=== PATIENT | male | born 1995 | race Caucasian/White ===

== ENCOUNTER 2018-08-24 21:24 | Emergency (ER) | payer BC ==
[2018-08-24 21:35] VITALS: BP 125/81
--- NOTE | 2018-08-24 23:59 | EDM.PDOC ---
ED HPI GENERAL MEDICAL PROBLEM - General Chief Complaint: Chest Pain Stated Complaint: CHEST PAIN AND SOB Time Seen by Provider: 08/24/18 23:01 Source of Information: Reports: Patient, Family (Mother), RN Notes Reviewed History Limitations: Reports: No Limitations - History of Present Illness INITIAL COMMENTS - FREE TEXT/NARRATIVE: The patient states that he developed left-sided chest discomfort around 20:30 this evening. He describes the sensation as tense/pressure. It came on suddenly. It is a discomfort, not a pain. He has not identified any modifiers. No associated dyspnea or palpitations. He has had nausea, but no emesis. No recent diaphoresis, although he states that his left armpit feels sweaty. He acknowledges that he feels anxious. The patient denies any recent chest trauma, however, he does report that he works out "everything" in the gym. The patient states that he drank a 16 ounce energy drink plus 12 ounces of coffee today. He acknowledges that he drank excessive alcohol on Friday night, 08/22/2018. The patient did not take any medications prior to coming to the ED. The patient has a history of anxiety, untreated. Here in the ED, it is noted that his oxygen saturation is 100% on room air, suggestive of hyperventilation. The patient's PCP is Dr. Hayder Villeda. Left Chest Pain Score (Numeric/FACES): 2 - Related Data Allergies Allergy/AdvReac Type Severity Reaction Status Date / Time cephalexin Allergy Rash Verified 08/24/18 21:35 Home Meds: Home Meds Orphenadrine [Norflex] 1 tab PO Q12H PRN #14 tab.er 08/25/18 [Rx] Past Medical History Gastrointestinal History: Reports: GERD Psychiatric History: Reports: Anxiety (untreated) Social & Family History - Tobacco Use Smoking Status *Q: Former Smoker Years of Tobacco use: 2 Packs/Tins Daily: 0.5 Month/Year Tobacco Last Used: Quit 2015 - Caffeine Use Caffeine Use: Reports: Coffee, Energy Drinks - Alcohol Use Alcohol Use History: Yes Alcohol Use Frequency: Socially (occasionally to excess) - Recreational Drug Use Recreational Drug Use: Yes Drug Use in Last 12 Months: Yes Recreational Drug Type: Reports: Marijuana/Hashish (last smoked June 2018), Psilocybin (Mushrooms) (Last ate around Mar 2018) - Living Situation & Occupation Living situation: Reports: Single, with Family Occupation: Unemployed ED ROS GENERAL - Review of Systems Review Of Systems: ROS reveals no pertinent complaints other than HPI. ED EXAM, GENERAL - Physical Exam Exam: See Below Exam Limited By: No Limitations General Appearance: Alert, WD/WN, No Apparent Distress Eye Exam: Bilateral Eye: EOMI, Normal Inspection Ears: Normal External Exam, Hearing Grossly Normal Nose: Normal Inspection Throat/Mouth: Normal Inspection, Normal Lips, Normal Voice, No Airway Compromise Head: Atraumatic, Normocephalic Neck: Normal Inspection, Full Range of Motion Respiratory/Chest: No Respiratory Distress, Lungs Clear, Normal Breath Sounds, No Accessory Muscle Use, Chest Non-Tender (No tenderness to direct palpation of the left pectoralis muscle, however, pain is reproduced with the patient pressing his hands together in front of his chest.) Cardiovascular: Normal Peripheral Pulses, Regular Rate, Rhythm, No Edema, No Gallop, No JVD, No Murmur, No Rub Peripheral Pulses: 4+: Radial (L), Radial (R) GI/Abdominal: Normal Bowel Sounds, Soft, Non-Tender, No Organomegaly, No Distention, No Abnormal Bruit, No Mass (Male) Exam: Deferred Rectal (Males) Exam: Deferred Back Exam: Normal Inspection, Full Range of Motion, NT Extremities: Normal Inspection, Normal Range of Motion, No Pedal Edema, Normal Capillary Refill Neurological: Alert, Oriented, Normal Cognition, No Motor/Sensory Deficits Psychiatric: Normal Affect Skin Exam: Warm, Dry, Intact, Normal Color, No Rash EKG INTERPRETATION EKG Date: 08/24/18 Time: 23:27 Rhythm: NSR Rate (Beats/Min): 78 [place]: Normal P-Wave: Present QRS: Normal ST-T: Normal QT: Normal Comparison: NA - No Prior EKG Course - Vital Signs Last Recorded V/S: Last Vital Signs Temp 36.4 C 08/24/18 21:31 Pulse 69 08/24/18 21:31 Resp 8 L 08/24/18 21:31 BP 125/81 08/24/18 21:31 Pulse Ox 100 08/24/18 21:31 - Orders/Labs/Meds Labs: Laboratory Tests 08/24/18 08/24/18 08/24/18 Range/Units 23:29 23:29 23:29 WBC 8.77 (4.23-9.07) K/mm3 RBC 5.11 (4.63-6.08) M/mm3 Hgb 14.7 (13.7-17.5) gm/L Hct 43.6 (40.1-51.0) % MCV 85.3 (79.0-92.2) fl MCH 28.8 (25.7-32.2) pg MCHC 33.7 (32.2-35.5) g/dl RDW Std Deviation 40.6 (35.1-43.9) fL Plt Count 223 (163-337) K/mm3 MPV 10.0 (9.4-12.3) fl Neutrophils % (Manual) 79 H (40-60) % Band Neutrophils % 0 (0-10) % Lymphocytes % (Manual) 14 L (20-40) % Atypical Lymphs % 0 % Monocytes % (Manual) 6 (2-10) % Eosinophils % (Manual) 1 (0.8-7.0) % Basophils % (Manual) 0 L (0.2-1.2) Platelet Estimate Adequate RBC Morph Comment Normal D-Dimer, Quantitative < 0.19 L (0.19-0.50) mg/L Sodium 140 (136-145) mEq/L Potassium 3.9 (3.5-5.1) mEq/L Chloride 104 (98-107) mEq/L Carbon Dioxide 29 (21-32) mEq/L Anion Gap 10.9 (5-15) BUN 14 (7-18) mg/dL Creatinine 1.0 (0.7-1.3) mg/dL Est Cr Clr Drug Dosing 97.02 mL/min Estimated GFR (MDRD) > 60 (>60) mL/min BUN/Creatinine Ratio 14.0 (14-18) Glucose 106 (74-106) mg/dL Calcium 9.2 (8.5-10.1) mg/dL Magnesium 1.8 (1.8-2.4) mg/dl Total Bilirubin 1.1 H (0.2-1.0) mg/dL AST 21 (15-37) U/L ALT 25 (16-63) U/L Alkaline Phosphatase 41 L (46-116) U/L Total Protein 7.9 (6.4-8.2) g/dl Albumin 4.6 (3.4-5.0) g/dl Globulin 3.3 gm/dL Albumin/Globulin Ratio 1.4 (1-2) Meds: Medications Discontinued Medications Generic Name Dose Route Start Last Admin Trade Name Manfred PRN Reason Stop Dose Admin Orphenadrine Citrate 100 mg 08/25/18 00:32 08/25/18 00:39 Norflex PO 08/25/18 00:33 100 mg ONETIME STA Administration - Re-Assessments/Exams Free Text/Narrative Re-Assessment/Exam: 08/24/18 23:58 The patient's left-sided chest pain is reproducible when he presses his hands together, indicating a musculoskeletal etiology. To be sure that nothing more serious is occurring, however, I have ordered blood work that includes a D-dimer , along with a chest x-ray and an ECG. 2-view chest radiograph appears to be normal. The cardiac silhouette is within normal limits. No pulmonary vascular congestion. No pleural effusions. No focal infiltrate. No pneumothorax. Formal read per the Radiologist pending. 08/25/18 00:33 Test results discussed with the patient and his mother. Today's workup is entirely unremarkable, ruling out pneumonia, pneumothorax, pulmonary embolus, or acute ischemia. Based on the patient's history and physical examination, the patient is most likely suffering from left pectoralis muscle strain, related to his working out. The patient will be started on Norflex, and I will prescribe additional. In addition, the patient can also take [id number] ibuprofen. Departure - Departure Time of Disposition: 00:34 Disposition: Home, Self-Care 01 Condition: Good Clinical Impression: Strain of left pectoralis muscle - Discharge Information *PRESCRIPTION DRUG MONITORING PROGRAM REVIEWED*: Not Applicable *COPY OF PRESCRIPTION DRUG MONITORING REPORT IN PATIENT CAYETANO: Not Applicable Prescriptions: Orphenadrine [Norflex] 1 tab PO Q12H PRN #14 tab.er PRN Reason: Muscle Spasm Instructions: Muscle Strain Referrals: Hayder Villeda MD [Primary Care Provider] - Forms: ED Department Discharge Additional Instructions: You were seen in the emergency room for left sided chest pain. Workup in the ER included blood work, a chest x-ray, and an ECG. Your workup was entirely unremarkable. You do not have pneumonia. You do not have a collapsed lung. You do not have a blood clot in your lungs. No abnormalities were found on your ECG. Based on your history, physical exam, and ER tests, the cause of your left sided chest pain is most likely due to pectoralis muscle strain, related to your working out. You have been started on the muscle relaxant Norflex. A prescription for Norflex has been sent to the [facility], located in the [employer] store. Take one tablet of Norflex every 12 hours, as needed for chest pain, as prescribed. In addition to Norflex, you may also take [id number] ibuprofen, 2-3 tablets (400-600 mg) every 8 hours, with food. If your symptoms persist beyond a few days, despite taking Norflex and ibuprofen , please follow-up with your PCP, Dr. Hayder Villeda. If any other problems, please do not hesitate to return to the ER.
[2018-08-25] MEDS ORDERED: Orphenadrine 100 MG Tab.ER PO STA (00:32)
--- NOTE | 2018-08-25 07:44 | CR ---
Chest: Two views of the chest were obtained. Comparison: Prior chest x-ray of 04/14/15. Heart size and mediastinum are normal. Lungs are clear with no acute parenchymal change. Bony structures are unremarkable. Impression: 1. Nothing acute is seen on two-view chest x-ray. Diagnostic code #1
== END 2018-08-25 00:45 | disposition home or self-care (01) ==
LOC: JD.ED 21:24
DX: S29.011A Strain of muscle and tendon of front wall of thorax, initial encounter (principal); Z88.1 Allergy status to other antibiotic agents; Z87.891 Personal history of nicotine dependence; X58.XXXA Exposure to other specified factors, initial encounter
CPT/HCPCS: 36415; 71046; 80053; 83735; 85007; 85027; 85379; 93005; 99285; A9270

== ENCOUNTER 2018-10-27 17:47 | Emergency (ER) | payer BC ==
[2018-10-27 18:05] VITALS: BP 139/96
--- NOTE | 2018-10-27 18:48 | EDM.PDOC ---
<Zonia Jewell - Last Filed: 10/27/18 18:54> ED HPI GENERAL MEDICAL PROBLEM - General Chief Complaint: Chest Pain Stated Complaint: CHEST PAIN/MUSCLE PAIN Time Seen by Provider: 10/27/18 18:07 - History of Present Illness INITIAL COMMENTS - FREE TEXT/NARRATIVE: Patient is a 23 year old male with no current medical conditions who presents today for evaluation of chest pain. He describes the sensation in his chest as more uncomfortable pressure rather than pain and localized it on the left outer chest wall. The patient denies any radiation of the pressure. The pressure has been present for approximately 3 months, when the patient moved back to [place] to live with his parents. The sensation is intermittent, with times when it is improved and then returns. In the patient's more recent episode, he had approximately 2 days of the pressure similiar to other episodes, but feels that it was worse today, bringing him into the ER. The patient could not pinpoint an event that occurred 2 days ago that may have initiated this episode. Nothing seems to make it better, and noise seems to make it worse. The patient also mentioned that he thinks that anxiety may make it worse. The patient has occasionally chest tightness when taking deep breaths during these episodes, and also notes that he can feel his heart beating loudly. He also feels like he is colder than normal. He does feel like his mood is "erratic" and he has "mood swings a lot," as well as "intrusive thoughts." He does feel that he is more depressed than normal, and has had increased anxiety and stress. He does not have specific thoughts or plans about harming himself or harming others. Left Chest Pain Score (Numeric/FACES): 5 - Related Data Allergies Allergy/AdvReac Type Severity Reaction Status Date / Time cephalexin Allergy Rash Verified 10/27/18 18:05 Home Meds: Home Meds . [No Known Home Meds] 10/27/18 [History] Past Medical History - Past Health History Medical/Surgical History: Denies Medical/Surgical History Other HEENT History: Recent history of tubes being "blocked" in September 2018 for which he took prednisone Gastrointestinal History: Reports: GERD Psychiatric History: Reports: Anxiety Social & Family History - Family History Family Medical History: Noncontributory Psychiatric: Reports: Anxiety - Tobacco Use Smoking Status *Q: Never Smoker - Tobacco Core Measures Tobacco Use/Smoking Within Last 30 Days: No - Caffeine Use Caffeine Use: Reports: Coffee, Tea - Recreational Drug Use Recreational Drug Use: Yes Drug Use in Last 12 Months: Yes Recreational Drug Type: Reports: Marijuana/Hashish Recreational Drug Use Frequency: Weekly - Living Situation & Occupation Living situation: Reports: Single, with Family Occupation: Unemployed ED ROS GENERAL - Review of Systems Review Of Systems: See Below Constitutional: Reports: Chills HEENT: Reports: No Symptoms Respiratory: Reports: No Symptoms Cardiovascular: Reports: No Symptoms Endocrine: Reports: No Symptoms GI/Abdominal: Reports: No Symptoms : Reports: No Symptoms Musculoskeletal: Reports: No Symptoms Skin: Reports: No Symptoms Neurological: Reports: No Symptoms Psychiatric: Reports: Anxiety, Depression, Other (See HPI) Hematologic/Lymphatic: Reports: No Symptoms Immunologic: Reports: No Symptoms ED EXAM, GENERAL - Physical Exam Exam: See Below Exam Limited By: No Limitations General Appearance: Alert, WD/WN Nose: Normal Inspection Throat/Mouth: Normal Inspection, Normal Voice Head: Atraumatic, Normocephalic Neck: Normal Inspection Respiratory/Chest: No Respiratory Distress, Lungs Clear, Normal Breath Sounds, No Accessory Muscle Use, Other (Left outer chest with mild tenderness to palpation in comparison with right ) Cardiovascular: Normal Peripheral Pulses, Regular Rate, Rhythm, No Edema, No Gallop, No Murmur, No Rub GI/Abdominal: Soft, Non-Tender Extremities: Normal Inspection, Non-Tender, No Pedal Edema Neurological: Alert, Oriented Psychiatric: Tearful Skin Exam: Warm, Dry, Intact, Normal Color, No Rash Course - Vital Signs Last Recorded V/S: Last Vital Signs Temp 99.1 F 10/27/18 18:01 Pulse 86 10/27/18 18:01 Resp 19 10/27/18 18:01 BP 139/96 H 10/27/18 18:01 Pulse Ox 100 10/27/18 18:01 - Orders/Labs/Meds Orders: Active Orders 24 hr Category Date Time Status Cardiac Monitoring [RC] . DIRECTED Care 10/27/18 18:48 Active EKG Documentation Completion [RC] STAT Care 10/27/18 18:49 Active Chest 2V [CR] Stat Exams 10/27/18 18:49 Taken Labs: Laboratory Tests 10/27/18 10/27/18 10/27/18 Range/Units 19:20 19:20 19:20 WBC 9.63 H (4.23-9.07) K/mm3 RBC 5.77 (4.63-6.08) M/mm3 Hgb 16.7 D (13.7-17.5) gm/L Hct 49.0 (40.1-51.0) % MCV 84.9 (79.0-92.2) fl MCH 28.9 (25.7-32.2) pg MCHC 34.1 (32.2-35.5) g/dl RDW Std Deviation 38.7 (35.1-43.9) fL Plt Count 264 (163-337) K/mm3 MPV 10.0 (9.4-12.3) fl Neut % (Auto) 81.2 H (34.0-67.9) % Lymph % (Auto) 11.1 L (21.8-53.1) % [place] % (Auto) 6.7 (5.3-12.2) % Eos % (Auto) 0.7 L (0.8-7.0) Baso % (Auto) 0.1 (0.1-1.2) % Neut # (Auto) 7.81 H (1.78-5.38) K/mm3 Lymph # (Auto) 1.07 L (1.32-3.57) K/mm3 Dick[place] # (Auto) 0.65 (0.30-0.82) K/mm3 Eos # (Auto) 0.07 (0.04-0.54) K/mm3 Baso # (Auto) 0.01 (0.01-0.08) K/mm3 D-Dimer, Quantitative < 0.19 L (0.19-0.50) mg/L Sodium 142 (136-145) mEq/L Potassium 4.0 (3.5-5.1) mEq/L Chloride 102 (98-107) mEq/L Carbon Dioxide 32 (21-32) mEq/L Anion Gap 12.0 (5-15) BUN 12 (7-18) mg/dL Creatinine 1.1 (0.7-1.3) mg/dL Est Cr Clr Drug Dosing 111.24 mL/min Estimated GFR (MDRD) > 60 (>60) mL/min BUN/Creatinine Ratio 10.9 L (14-18) Glucose 110 H (74-106) mg/dL Calcium 9.7 (8.5-10.1) mg/dL Total Bilirubin 1.0 (0.2-1.0) mg/dL AST 18 (15-37) U/L ALT 26 (16-63) U/L Alkaline Phosphatase 47 (46-116) U/L Troponin I < 0.017 (0.00-0.056) ng/mL Total Protein 9.0 H (6.4-8.2) g/dl Albumin 5.0 (3.4-5.0) g/dl Globulin 4.0 gm/dL Albumin/Globulin Ratio 1.3 (1-2) Meds: Medications Discontinued Medications Generic Name Dose Route Start Last Admin Trade Name Freq PRN Reason Stop Dose Admin Lorazepam 0.5 mg 10/27/18 18:49 10/27/18 19:00 Ativan PO 10/27/18 18:50 0.5 mg ONETIME ONE Administration Departure - Departure Disposition: Home, Self-Care 01 Clinical Impression: Pleurisy, Anxiety Referrals: Hayder Villeda MD [Primary Care Provider] - 1 Week Forms: ED Department Discharge Additional Instructions: Take motrin, ibuprofen or aleve for the pain. Take an ativan as needed for any anxiety you feel with it. Follow up with your doctor within a week. Please return if you are worse. - My Orders Last 24 Hours: My Active Orders 10/27/18 18:48 Cardiac Monitoring [RC] . DIRECTED 10/27/18 18:49 EKG Documentation Completion [RC] STAT Chest 2V [CR] Stat - Assessment/Plan Last 24 Hours: My Active Orders 10/27/18 18:48 Cardiac Monitoring [RC] . DIRECTED 10/27/18 18:49 EKG Documentation Completion [RC] STAT Chest 2V [CR] Stat <Arnoldo Ortiz - Last Filed: 10/27/18 20:32> Course - Re-Assessments/Exams Free Text/Narrative Re-Assessment/Exam: 10/27/18 20:06 I assessed the patient myself and I agree with Zonia's assessment and plan. I ordered an EKG, CXR, labs and ativan 0.5mg PO. His EKG shows a NSR with no acute changes. His WBC was slightly elevated at 9.63. His CMP was negative. His troponin was negative. 10/27/18 20:30 His D-dimer was negative. I feel this is pleurisy and it is causing some anxiety. I will have him take ibuprofen and I will give him a few ativan for the anxiety he is feeling with this. Departure - Departure Time of Disposition: 20:35 Condition: Good
[2018-10-27] MEDS ORDERED: LORazepam 0.5 MG Tab PO ONE (18:49)
--- NOTE | 2018-10-28 07:00 | CR ---
Chest: Two views of the chest were obtained. Comparison: Prior chest x-ray of 08/29/18. Heart size and mediastinum are normal. Lungs are clear. Bony structures are unremarkable. Impression: 1. Nothing acute is seen on two-view chest x-ray. Diagnostic code #1
== END 2018-10-27 20:44 | disposition home or self-care (01) ==
LOC: JD.ED 17:47
DX: F41.9 Anxiety disorder, unspecified (principal); R09.1 Pleurisy; Z88.1 Allergy status to other antibiotic agents
CPT/HCPCS: 36415; 71046; 80053; 84484; 85025; 85379; 93005; 99285; A9270

== ENCOUNTER 2018-11-30 17:33 | Emergency (ER) | payer BC ==
[2018-11-30 17:49] VITALS: BP 138/90; PULSE 60
[2018-11-30] MEDS ORDERED: FLU Vacc QS2019-20(6MOS+)/PF 60 MCG/0.5 ML SYRINGE IM ONE (18:15)
[2018-11-30] MEDS ORDERED: Acetaminophen 325 MG Tab PO ONE (18:25)
--- NOTE | 2018-11-30 18:31 | EDM.PDOC ---
ED HPI GENERAL MEDICAL PROBLEM - General Chief Complaint: Headache Stated Complaint: HEADACHE FOR 4 DAYS Time Seen by Provider: 11/30/18 18:01 Source of Information: Reports: Patient, RN Notes Reviewed - History of Present Illness INITIAL COMMENTS - FREE TEXT/NARRATIVE: 23 year old male with frontal Hugo for about 4 days. Has also had occasional palpiations. No nausea, vomiting. No neck or back pain. No focal sx. Has not been otherwise ill. Frontal Headache Pain Score (Numeric/FACES): 8 - Related Data Allergies Allergy/AdvReac Type Severity Reaction Status Date / Time cephalexin Allergy Rash Verified 11/30/18 17:49 Home Meds: Home Meds . [No Known Home Meds] 10/27/18 [History] Past Medical History - Past Health History Medical/Surgical History: Denies Medical/Surgical History Other HEENT History: Recent history of tubes being "blocked" in September 2018 for which he took prednisone Gastrointestinal History: Reports: GERD Psychiatric History: Reports: Anxiety Social & Family History - Family History Family Medical History: Noncontributory Psychiatric: Reports: Anxiety - Tobacco Use Smoking Status *Q: Never Smoker - Caffeine Use Caffeine Use: Reports: Coffee - Recreational Drug Use Recreational Drug Use: No - Living Situation & Occupation Living situation: Reports: Single, with Family Occupation: Unemployed ED ROS GENERAL - Review of Systems Review Of Systems: See Below Constitutional: Denies: Fever, Chills, Diaphoresis HEENT: Denies: Ear Pain, Rhinitis, Sinus Problem, Throat Pain, Vertigo, Vision Change Respiratory: Denies: Shortness of Breath Cardiovascular: Reports: Palpitations GI/Abdominal: Denies: Abdominal Pain, Nausea, Vomiting Musculoskeletal: Reports: No Symptoms Skin: Reports: No Symptoms Neurological: Reports: Headache. Denies: Numbness, Tingling, Trouble Speaking, Difficulty Walking, Weakness - Physical Exam Exam: See Below General Appearance: Alert, No Apparent Distress Eye Exam: Bilateral Eye: PERRL Ears: Normal External Exam Throat/Mouth: Normal Inspection, Normal Oropharynx Head Exam: Atraumatic. No: Facial Swelling Respiratory/Chest: No Respiratory Distress, Lungs Clear Cardiovascular: Regular Rate, Rhythm Neuro Exam (Abbreviated): Alert, Oriented, No Motor/Sensory Deficits, Other ( finger to nose normal) Psychiatric: Normal Affect, Normal Mood Skin Exam: Warm, Dry, Normal Color Course - Vital Signs Last Recorded V/S: Last Vital Signs Temp 97.6 F 11/30/18 17:47 Pulse 60 11/30/18 17:47 Resp 16 11/30/18 17:47 BP 138/90 11/30/18 17:47 Pulse Ox 100 11/30/18 17:47 - Orders/Labs/Meds Meds: Medications Discontinued Medications Generic Name Dose Route Start Last Admin Trade Name Manfred PRN Reason Stop Dose Admin Acetaminophen 975 mg 11/30/18 18:25 11/30/18 19:07 Tylenol PO 11/30/18 18:26 975 mg NOW ONE Administration Influenza Virus Vaccine 1 each 11/30/18 17:50 Pharmacy To Dose - Influenza Vaccine IM 11/30/18 17:51 ONETIME ONE Influenza Virus Vaccine 60 mcg 11/30/18 18:15 11/30/18 19:08 Fluzone Quad [id number] Syringe IM 11/30/18 18:16 60 mcg .ONCE ONE Administration Departure - Departure Time of Disposition: 18:27 Disposition: Home, Self-Care 01 Condition: Fair Clinical Impression: Headache - Discharge Information Instructions: Migraine Headache, [id number] Referrals: PCP,None [Primary Care Provider] - Forms: ED Department Discharge Additional Instructions: naprosyn 500 mg twice daily, take that with food or after meals. You may take tylenol 1000 mg 2 to 3 times daily in addition if needed. Alternate ice and heat to area of discomfort as needed. See Navid Zhao or one of our other providers at our [facility] medical clinic in about 7 to 10 days. Call for [phone] for appointment.
== END 2018-11-30 19:14 | disposition home or self-care (01) ==
LOC: JD.ED 17:33
DX: R51 Headache (principal); Z88.1 Allergy status to other antibiotic agents
CPT/HCPCS: 90471; 90686; 99283; A9270; G0008

== ENCOUNTER 2019-01-18 15:12 | Emergency (ER) | payer BC ==
[2019-01-18 15:19] VITALS: BP 138/86; PULSE 81
--- NOTE | 2019-01-18 15:26 | EDM.PDOC ---
ED HPI GENERAL MEDICAL PROBLEM - General Chief Complaint: General Stated Complaint: L ARM PAIN Time Seen by Provider: 01/18/19 15:26 - History of Present Illness INITIAL COMMENTS - FREE TEXT/NARRATIVE: 23-year-old male presents emergency room with left axillary discomfort. This is been going on for 5 or 6 months the patient is been seen here in the past with this no clear-cut diagnosis is been made. Patient does have some underlying anxiety issues. Patient complains that sometimes he can watch his muscles vibrate. The patient has been on Klonopin in the past and this has helped a little bit with his muscles. Ibuprofen has not been effective in the past with this. Left Arm Pain Score (Numeric/FACES): 6 - Related Data Allergies Allergy/AdvReac Type Severity Reaction Status Date / Time cephalexin Allergy Rash Verified 01/18/19 15:19 Home Meds: Home Meds ClonazePAM [KlonoPIN] 0.5 mg PO BID 01/18/19 [History] Propranolol [Inderal] 20 mg PO Q12H #30 tablet 01/18/19 [Rx] clonazePAM [Klonopin] 0.5 mg PO Q12H #20 tablet 01/18/19 [Rx] Past Medical History - Past Health History Medical/Surgical History: Denies Medical/Surgical History Other HEENT History: Recent history of tubes being "blocked" in September 2018 for which he took prednisone Gastrointestinal History: Reports: GERD Psychiatric History: Reports: Anxiety Social & Family History - Family History Family Medical History: Noncontributory Psychiatric: Reports: Anxiety - Tobacco Use Smoking Status *Q: Never Smoker Second Hand Smoke Exposure: No - Caffeine Use Caffeine Use: Reports: Coffee - Alcohol Use Days Per Week of Alcohol Use: 2 Number of Drinks Per Day: 7 Total Drinks Per Week: 14 - Recreational Drug Use Recreational Drug Use: Yes Recreational Drug Type: Reports: Marijuana/Hashish - Living Situation & Occupation Living situation: Reports: Single, with Family Occupation: Unemployed ED ROS GENERAL - Review of Systems Review Of Systems: See Below Constitutional: Reports: No Symptoms HEENT: Reports: No Symptoms Respiratory: Reports: No Symptoms Cardiovascular: Reports: Chest Pain (Axillary discomfort see history of present illness) Endocrine: Reports: No Symptoms GI/Abdominal: Reports: No Symptoms ED EXAM, GENERAL - Physical Exam Exam: See Below Exam Limited By: No Limitations General Appearance: Alert, No Apparent Distress Head: Atraumatic, Normocephalic Neck: No: Lymphadenopathy (L), Lymphadenopathy (R) Respiratory/Chest: No Respiratory Distress, Lungs Clear, Normal Breath Sounds. No: Chest Non-Tender (Patient has some tenderness in his left midaxillary area at times he felt his muscles shaking there but I cannot feel that) Cardiovascular: Regular Rate, Rhythm, No Edema, No Murmur GI/Abdominal: Normal Bowel Sounds, Soft, Non-Tender Neurological: Alert, Oriented, Normal Cognition, Other (Normal deep tendon reflexes the brachial radialis and patella tendons bilaterally) Psychiatric: Normal Affect, Anxious (Slightly anxious) EKG INTERPRETATION EKG Date: 01/18/19 Rhythm: NSR Alpha: Normal P-Wave: Present QRS: Normal ST-T: Normal QT: Normal Comparison: Change From Previous EKG EKG Interpretation Comments: Normal EKG Course - Vital Signs Last Recorded V/S: Last Vital Signs Temp 36.4 C 01/18/19 15:18 Pulse 81 01/18/19 15:18 Resp 15 01/18/19 15:18 BP 138/86 01/18/19 15:18 Pulse Ox 100 01/18/19 15:18 - Orders/Labs/Meds Orders: Active Orders 24 hr Category Date Time Status EKG Documentation Completion [RC] STAT Care 01/18/19 15:46 Active Chest 2V [CR] Stat Exams 01/18/19 15:45 Taken Labs: Laboratory Tests 01/18/19 Range/Units 16:10 Sodium 143 (136-145) mEq/L Potassium 3.9 (3.5-5.1) mEq/L Chloride 104 (98-107) mEq/L Carbon Dioxide 26 (21-32) mEq/L Anion Gap 16.9 H (5-15) BUN 15 (7-18) mg/dL Creatinine 0.8 (0.7-1.3) mg/dL Est Cr Clr Drug Dosing 142.81 mL/min Estimated GFR (MDRD) > 60 (>60) mL/min BUN/Creatinine Ratio 18.8 H (14-18) Glucose 81 (74-106) mg/dL Calcium 9.2 (8.5-10.1) mg/dL Magnesium 2.1 (1.8-2.4) mg/dl Creatine Kinase 231 (39-308) U/L - Re-Assessments/Exams Free Text/Narrative Re-Assessment/Exam: 01/18/19 16:38 Chest x-ray normal awaiting labs EKG was also normal. 01/18/19 17:38 Other than being a little on the dry side workup thus far is unremarkable seems as if his biggest complaint is his shaking which I would call a tremor. We'll try him on low-dose propranolol and see if this helps, this might be beneficial for his anxiety. Departure - Departure Time of Disposition: 17:40 Disposition: Home, Self-Care 01 Clinical Impression: Anxiety, Tremor of both hands - Discharge Information Prescriptions: clonazePAM [Klonopin] 0.5 mg PO Q12H #20 tablet Propranolol [Inderal] 20 mg PO Q12H #30 tablet Referrals: Elgin Valencia PA-C [Primary Care Provider] - Forms: ED Department Discharge Additional Instructions: Return to emergency room with any questions problems worsening symptoms. Follow-up in the clinic in one week to discuss how things are going and if further workup needs to be done. Take the medication as directed - My Orders Last 24 Hours: My Active Orders 01/18/19 15:45 Chest 2V [CR] Stat 01/18/19 15:46 EKG Documentation Completion [RC] STAT - Assessment/Plan Last 24 Hours: My Active Orders 01/18/19 15:45 Chest 2V [CR] Stat 01/18/19 15:46 EKG Documentation Completion [RC] STAT
--- NOTE | 2019-01-18 19:09 | CR ---
Chest: Two views of the chest were obtained. Comparison: Prior chest x-ray of 10/27/18. Heart size and mediastinum are normal. Lungs are clear. Bony structures are unremarkable. Impression: 1. Nothing acute is seen on two-view chest x-ray. Diagnostic code #1
== END 2019-01-18 17:54 | disposition home or self-care (01) ==
LOC: JD.ED 15:12
DX: F41.9 Anxiety disorder, unspecified (principal); R25.1 Tremor, unspecified; Z88.1 Allergy status to other antibiotic agents; Z79.899 Other long term (current) drug therapy
CPT/HCPCS: 36415; 71046; 71046-26; 80048; 82550; 83735; 93005; 93010; 99283; 99284-25

== ENCOUNTER 2019-04-14 16:49 | Emergency (ER) | payer BC ==
[2019-04-14] MEDS ORDERED: Ketorolac 60 MG/2 ML SDV IM ONE (18:15)
[2019-04-14] MEDS ORDERED: LORazepam 0.5 MG Tab PO ONE (18:15)
--- NOTE | 2019-04-14 18:35 | EDM.PDOC ---
ED HPI GENERAL MEDICAL PROBLEM - General Chief Complaint: Chest Pain Stated Complaint: NOSE BLEED Time Seen by Provider: 04/14/19 17:12 Source of Information: Reports: Patient History Limitations: Reports: No Limitations - History of Present Illness INITIAL COMMENTS - FREE TEXT/NARRATIVE: Patient is a 23-year-old male who presents to the ER with complaints of left- sided chest pain and recurrent nosebleeds. Patient states that he has been having this chest pain off and on for the last 6 months. Today's episode started this morning. He reports the pain is in his left chest midclavicular line approximately the fourth intercostal space. Pain is worse when taking a deep breath but is not tender to palpation. Patient has a fairly significant history of anxiety and has been seeing Elgin Valencia for this. He was started on sertraline 3 weeks ago. He also has a prescription for clonazepam, however he states he was not taking it because he did not know if he could take it with the sertraline. He denies any caffeine use. Denies palpitations at this time. No shortness of breath or diaphoresis is associated with this. Patient also has concerns that he has been having daily nosebleeds. States that he discussed these with his primary care Elgin Valencia when he saw him about 3 weeks ago. He was advised at that time to use Vaseline and nasal saline spray. States he has been using these, however he continues to have them. He denies any history of clotting disorder. These nosebleeds last about 10 to 20 minutes and then stop. Describes them as "gushing". Left Upper Chest Pain Score (Numeric/FACES): 4 - Related Data Allergies Allergy/AdvReac Type Severity Reaction Status Date / Time cephalexin Allergy Rash Verified 04/14/19 17:03 red (food color) Allergy Hives Verified 04/14/19 17:03 Home Meds: Home Meds Sertraline [Zoloft] 0 mg PO DAILY 04/14/19 [History] Past Medical History - Past Health History Medical/Surgical History: Denies Medical/Surgical History HEENT History: Reports: Epistaxis Other HEENT History: Recent history of tubes being "blocked" in September 2018 for which he took prednisone Cardiovascular History: Reports: Hypertension Respiratory History: Reports: None Gastrointestinal History: Reports: GERD Genitourinary History: Reports: None Musculoskeletal History: Reports: None Neurological History: Reports: None Psychiatric History: Reports: Anxiety Endocrine/Metabolic History: Reports: None Hematologic History: Reports: None Immunologic History: Reports: None Oncologic (Cancer) History: Reports: None Dermatologic History: Reports: None - Infectious Disease History Infectious Disease History: Reports: None Social & Family History - Family History Family Medical History: Noncontributory Psychiatric: Reports: Anxiety - Tobacco Use Smoking Status *Q: Never Smoker - Caffeine Use Caffeine Use: Reports: Soda, Tea - Recreational Drug Use Recreational Drug Use: No - Living Situation & Occupation Living situation: Reports: Single, with Family Occupation: Unemployed ED ROS GENERAL - Review of Systems Review Of Systems: Comprehensive ROS is negative, except as noted in HPI. ED EXAM, GENERAL - Physical Exam Exam: See Below Exam Limited By: No Limitations General Appearance: Alert, WD/WN, No Apparent Distress Nose: Normal Inspection, Normal Mucosa, No Blood Respiratory/Chest: No Respiratory Distress, Lungs Clear, Normal Breath Sounds, No Accessory Muscle Use, Chest Non-Tender Cardiovascular: Normal Peripheral Pulses, Regular Rate, Rhythm, No Edema, No Gallop, No JVD, No Murmur, No Rub Neurological: Alert, Oriented, CN II-XII Intact, Normal Cognition, Normal Gait, Normal Reflexes, No Motor/Sensory Deficits Psychiatric: Normal Affect, Normal Mood, Anxious Skin Exam: Warm, Dry, Intact, Normal Color, No Rash Course - Vital Signs Last Recorded V/S: Last Vital Signs Temp 98.1 F 04/14/19 17:00 Pulse 88 04/14/19 17:00 Resp 16 04/14/19 17:00 BP 137/91 H 04/14/19 17:00 Pulse Ox 100 04/14/19 17:00 - Orders/Labs/Meds Orders: Active Orders 24 hr Category Date Time Status EKG Documentation Completion [RC] STAT Care 04/14/19 18:17 Active Chest 2V [CR] Stat Exams 04/14/19 18:17 Taken TSH [CHEM] Stat Lab 04/14/19 18:45 Received Labs: Laboratory Tests 04/14/19 04/14/19 04/14/19 Range/Units 18:45 18:45 18:45 WBC 8.20 (4.23-9.07) K/mm3 RBC 5.27 (4.63-6.08) M/mm3 Hgb 15.2 D (13.7-17.5) gm/dl Hct 45.9 (40.1-51.0) % MCV 87.1 (79.0-92.2) fl MCH 28.8 (25.7-32.2) pg MCHC 33.1 (32.2-35.5) g/dl RDW Std Deviation 40.9 (35.1-43.9) fL Plt Count 222 (163-337) K/mm3 MPV 9.9 (9.4-12.3) fl Neut % (Auto) 70.4 H (34.0-67.9) % Lymph % (Auto) 16.2 L (21.8-53.1) % [place] % (Auto) 11.2 (5.3-12.2) % Eos % (Auto) 2.0 (0.8-7.0) Baso % (Auto) 0.1 (0.1-1.2) % Neut # (Auto) 5.77 H (1.78-5.38) K/mm3 Lymph # (Auto) 1.33 (1.32-3.57) K/mm3 [place] # (Auto) 0.92 H (0.30-0.82) K/mm3 Eos # (Auto) 0.16 (0.04-0.54) K/mm3 Baso # (Auto) 0.01 (0.01-0.08) K/mm3 PT 10.3 (9.7-12.0) SECONDS INR 0.94 APTT 30 (22-31) SECONDS D-Dimer, Quantitative < 0.19 L (0.19-0.50) mg/L Sodium 142 (136-145) mEq/L Potassium 3.7 (3.5-5.1) mEq/L Chloride 104 (98-107) mEq/L Carbon Dioxide 28 (21-32) mEq/L Anion Gap 13.7 (5-15) BUN 15 (7-18) mg/dL Creatinine 1.0 (0.7-1.3) mg/dL Est Cr Clr Drug Dosing 112.04 mL/min Estimated GFR (MDRD) > 60 (>60) mL/min BUN/Creatinine Ratio 15.0 (14-18) Glucose 82 (74-106) mg/dL Calcium 8.7 (8.5-10.1) mg/dL Total Bilirubin 1.2 H (0.2-1.0) mg/dL AST 20 (15-37) U/L ALT 23 (16-63) U/L Alkaline Phosphatase 44 L (46-116) U/L Troponin I < 0.017 (0.00-0.056) ng/mL Total Protein 7.6 (6.4-8.2) g/dl Albumin 4.0 (3.4-5.0) g/dl Globulin 3.6 gm/dL Albumin/Globulin Ratio 1.1 (1-2) Meds: Medications Discontinued Medications Generic Name Dose Route Start Last Admin Trade Name Manfred PRN Reason Stop Dose Admin Ketorolac Tromethamine 30 mg 04/14/19 18:15 04/14/19 18:29 Toradol IM 04/14/19 18:16 30 mg ONETIME ONE Administration Lorazepam 0.5 mg 04/14/19 18:15 04/14/19 18:30 Ativan PO 04/14/19 18:16 0.5 mg ONETIME ONE Administration - Re-Assessments/Exams Free Text/Narrative Re-Assessment/Exam: 04/14/19 19:38 Patient's work-up was grossly unremarkable. He verbalized relief from symptoms after the Ativan and Toradol administration. Discussed that he may continue to use the clonazepam as needed while he is getting to a therapeutic level with his sertraline. Also discussed methods to keep the nares moist to prevent recurrent nosebleeds. Discussed that he should follow-up with his primary care provider as if this keeps occurring he may need a referral to ENT. Discharge instructions as documented Departure - Departure Time of Disposition: 19:39 Disposition: Home, Self-Care 01 Condition: Good Clinical Impression: Anxiety, Atypical chest pain, Epistaxis Instructions: Nonspecific Chest Pain, Living With Anxiety, Nosebleed, Adult Referrals: Elgin Valencia PA-C [Primary Care Provider] - Forms: ED Department Discharge Additional Instructions: You were seen in the emergency department today for recurrent chest pain and recurrent nosebleeds. Your work-up included blood work, chest x-ray, and an EKG on your heart. The work-up came back normal. As we discussed, you may continue to use your clonazepam as needed while you are working on getting to a therapeutic dose of your sertraline. You may also use [id number] Tylenol or ibuprofen as needed for any discomfort. With regard to your nosebleeds, I would recommend that you purchase Newberry over-the -counter and apply that into your bilateral nares a few times daily. You may also use saline nasal spray to help moisturize your. Humidifier in your sleeping quarters is also helpful. For when you have a nosebleed, you may purchase Afrin (oxymetazoline) and spray it into the nare that is bleeding. This will help to constrict the blood vessels and stop the bleeding. As we discussed, I would recommend that you follow-up with your primary care provider if these keep recurring so that you may discuss a referral to ENT as well as possible clotting studies to be done. If you experience any worsening symptoms, please not hesitate to return to the emergency department. Sepsis Event Note - Evaluation Sepsis Screening Result: No Definite Risk - Focused Exam Vital Signs: Vital Signs Temp Pulse Resp BP Pulse Ox 04/14/19 17:00 98.1 F 88 16 137/91 H 100 Date Exam was Performed: 04/14/19 Time Exam was Performed: 19:38 - My Orders Last 24 Hours: My Active Orders 04/14/19 18:17 EKG Documentation Completion [RC] STAT Chest 2V [CR] Stat 04/14/19 18:45 TSH [CHEM] Stat - Assessment/Plan Last 24 Hours: My Active Orders 04/14/19 18:17 EKG Documentation Completion [RC] STAT Chest 2V [CR] Stat 04/14/19 18:45 TSH [CHEM] Stat
--- NOTE | 2019-04-14 19:41 | CR ---
Chest: 2 views of the chest were obtained. Comparison: Prior chest x-ray of 01/18/19. Heart size and mediastinum are normal. Lungs are clear with no acute parenchymal change. Bony structures are unremarkable. Impression: 1. Nothing acute is appreciated on 2 view chest x-ray. Diagnostic code #1 Study was dictated in [place] Standard Time
[2019-04-14 21:17] VITALS: BP 128/76; PULSE 73
== END 2019-04-14 20:24 | disposition home or self-care (01) ==
LOC: JD.ED 16:49
DX: R07.89 Other chest pain (principal); R04.0 Epistaxis; F41.9 Anxiety disorder, unspecified; Z88.1 Allergy status to other antibiotic agents; Z91.018 Allergy to other foods; Z79.899 Other long term (current) drug therapy
CPT/HCPCS: 36415; 71046; 80053; 84443; 84484; 85025; 85379; 85610; 85730; 93005; 96372; 99285; A9270; J1885; 93010; 99283

== ENCOUNTER 2019-11-28 02:22 | Emergency (ER) | payer BC ==
[2019-11-28 02:37] VITALS: BP 142/95; PULSE 87
--- NOTE | 2019-11-28 03:14 | EDM.PDOC ---
ED HPI GENERAL MEDICAL PROBLEM - General Chief Complaint: Chest Pain Stated Complaint: CHEST PAIN TIGHTNESS NEG COVID 11/26 Time Seen by Provider: 11/28/19 02:57 Source of Information: Reports: Patient History Limitations: Reports: No Limitations - History of Present Illness INITIAL COMMENTS - FREE TEXT/NARRATIVE: This is a 24-year-old male that he has been having some left chest pain today since he awoke. He has had his left chest pain maybe 6 months ago and he was told it was related to his anxiety. He was placed on clonazepam and citalopram. He has been trying to wean himself off the citalopram over these last several weeks. Complains of a constant pain in his left chest area that does not seem to be affected by movement of his left arm or with deep breathing. When you palpate the left chest area he does not seem to have any tenderness whatsoever but he complains of pain there. He says work-ups in the past have not found anything. That is why they said it was related to anxiety. He does admit to being anxious. Left Chest Pain Score (Numeric/FACES): 8 - Related Data Allergies Allergy/AdvReac Type Severity Reaction Status Date / Time cephalexin Allergy Rash Verified 11/28/19 02:34 red (food color) Allergy Hives Verified 11/28/19 02:34 Home Meds: Home Meds Sertraline [Zoloft] 0 mg PO DAILY 04/14/19 [History] ClonazePAM [KlonoPIN] 0.5 mg PO DAILY 11/28/19 [History] Naproxen [Naprosyn] 500 mg PO Q12HR #20 tab 11/28/19 [Rx] Past Medical History - Past Health History Medical/Surgical History: Denies Medical/Surgical History HEENT History: Reports: Epistaxis Other HEENT History: Recent history of tubes being "blocked" in September 2018 for which he took prednisone Cardiovascular History: Reports: Hypertension Respiratory History: Reports: None Gastrointestinal History: Reports: GERD Genitourinary History: Reports: None Musculoskeletal History: Reports: None Neurological History: Reports: None Psychiatric History: Reports: Anxiety Endocrine/Metabolic History: Reports: None Hematologic History: Reports: None Immunologic History: Reports: None Oncologic (Cancer) History: Reports: None Dermatologic History: Reports: None - Infectious Disease History Infectious Disease History: Reports: None Social & Family History - Family History Family Medical History: Noncontributory Psychiatric: Reports: Anxiety - Tobacco Use Smoking Status *Q: Never Smoker - Caffeine Use Caffeine Use: Reports: Soda, Tea - Recreational Drug Use Recreational Drug Use: Yes Drug Use in Last 12 Months: Yes Recreational Drug Type: Reports: Marijuana/Hashish Recreational Drug Use Frequency: Daily - Living Situation & Occupation Living situation: Reports: Single, with Family Occupation: Unemployed ED ROS GENERAL - Review of Systems Review Of Systems: See Below Constitutional: Denies: Fever, Chills HEENT: Reports: No Symptoms Respiratory: Denies: Shortness of Breath, Cough Cardiovascular: Reports: Chest Pain Endocrine: Reports: No Symptoms GI/Abdominal: Reports: No Symptoms : Reports: No Symptoms Musculoskeletal: Reports: No Symptoms Skin: Reports: No Symptoms Neurological: Reports: No Symptoms Psychiatric: Reports: No Symptoms Hematologic/Lymphatic: Reports: No Symptoms ED EXAM, GENERAL - Physical Exam Exam: See Below Exam Limited By: No Limitations General Appearance: Alert, WD/WN, No Apparent Distress Eye Exam: Bilateral Eye: Normal Inspection Ears: Normal External Exam Nose: Normal Inspection Throat/Mouth: Normal Voice, No Airway Compromise Head: Normocephalic Neck: Supple Respiratory/Chest: No Respiratory Distress, Lungs Clear, Normal Breath Sounds, Other (Palpation of the left anterior chest and pectoralis muscle reveals no tenderness. There is no rib tenderness or costochondral tenderness on palpation. Movement of his left arm does not seem to cause any increased pain or deep breathing does not seem to cause increased pain.) Cardiovascular: Regular Rate, Rhythm, No Murmur GI/Abdominal: Soft Back Exam: Full Range of Motion Extremities: Normal Inspection, Normal Range of Motion Neurological: Alert, Oriented Psychiatric: Normal Affect, Normal Mood Skin Exam: Warm, Dry EKG INTERPRETATION EKG Date: 11/28/19 Time: 03:10 EKG Interpretation Comments: EKG shows a normal sinus rhythm with sinus arrhythmia rate of [address] or T wave changes no ischemia noted Course - Vital Signs Last Recorded V/S: Last Vital Signs Temp 97.7 F 11/28/19 02:32 Pulse 87 11/28/19 02:32 Resp 15 11/28/19 02:32 BP 142/95 H 11/28/19 02:32 Pulse Ox 99 11/28/19 02:32 - Orders/Labs/Meds Orders: Active Orders 24 hr Category Date Time Status EKG 12 Lead [EKG Documentation Completion] [RC] STAT Care 11/28/19 03:06 Active Chest 2V [CR] Stat Exams 11/28/19 03:05 Taken Labs: Laboratory Tests 11/28/19 11/28/19 11/28/19 Range/Units 03:30 03:30 03:30 WBC 5.68 (4.23-9.07) K/mm3 RBC 5.33 (4.63-6.08) M/mm3 Hgb 15.4 (13.7-17.5) gm/dl Hct 45.7 (40.1-51.0) % MCV 85.7 (79.0-92.2) fl MCH 28.9 (25.7-32.2) pg MCHC 33.7 (32.2-35.5) g/dl RDW Std Deviation 39.6 (35.1-43.9) fL Plt Count 237 (163-337) K/mm3 MPV 10.0 (9.4-12.3) fl Neut % (Auto) 61.9 (34.0-67.9) % Lymph % (Auto) 27.1 (21.8-53.1) % [place] % (Auto) 7.6 (5.3-12.2) % Eos % (Auto) 3.0 (0.8-7.0) Baso % (Auto) 0.2 (0.1-1.2) % Neut # (Auto) 3.52 (1.78-5.38) K/mm3 Lymph # (Auto) 1.54 (1.32-3.57) K/mm3 [place] # (Auto) 0.43 (0.30-0.82) K/mm3 Eos # (Auto) 0.17 (0.04-0.54) K/mm3 Baso # (Auto) 0.01 (0.01-0.08) K/mm3 D-Dimer, Quantitative < 0.19 L (0.19-0.50) mg/L Sodium 140 (136-145) mEq/L Potassium 3.8 (3.5-5.1) mEq/L Chloride 102 (98-107) mEq/L Carbon Dioxide 31 (21-32) mEq/L Anion Gap 10.8 (5-15) BUN 16 (7-18) mg/dL Creatinine 1.1 (0.7-1.3) mg/dL Est Cr Clr Drug Dosing 103.64 mL/min Estimated GFR (MDRD) > 60 (>60) mL/min BUN/Creatinine Ratio 14.5 (14-18) Glucose 91 (74-106) mg/dL Calcium 9.3 (8.5-10.1) mg/dL Total Bilirubin 1.2 H (0.2-1.0) mg/dL AST 17 (15-37) U/L ALT 22 (16-63) U/L Alkaline Phosphatase 35 L (46-116) U/L Troponin I < 0.017 (0.00-0.056) ng/mL Total Protein 8.3 H (6.4-8.2) g/dl Albumin 4.6 (3.4-5.0) g/dl Globulin 3.7 gm/dL Albumin/Globulin Ratio 1.2 (1-2) Meds: Medications Discontinued Medications Generic Name Dose Route Start Last Admin Trade Name Manfred PRN Reason Stop Dose Admin Ketorolac Tromethamine 60 mg 11/28/19 04:33 11/28/19 04:43 Toradol IM 11/28/19 04:34 60 mg ONETIME ONE Administration - Radiology Interpretation Free Text/Narrative:: Chest x-ray does not show any acute changes. His blood work showed essentially normal complete blood count and chemistry profile his d-dimer was less than 0.19. - Re-Assessments/Exams Free Text/Narrative Re-Assessment/Exam: 11/28/19 05:38 Patient states that the shot did make him feel better though he still having some pain in that left chest area. We did talk about pleurisy as a cause of this. Suggested a given prescription for some naproxen to be taken and also to use ice or heat to his chest. Departure - Departure Time of Disposition: 05:39 Disposition: Home, Self-Care 01 Condition: Good Clinical Impression: Atypical chest pain, Pleurisy Prescriptions: Naproxen [Naprosyn] 500 mg PO Q12HR #20 tab Instructions: Pleurisy, [id number] Referrals: Elgin Valencia PA-C [Primary Care Provider] - Forms: ED Department Discharge Additional Instructions: Use ice or heat to your chest to help with the pain and soreness, get the prescription and take the naproxen twice a day to help with the chest soreness, follow-up with your family doctor for recheck this week, resume your medications as you are supposed to, return to the ER as needed Sepsis Event Note (ED) - Evaluation Sepsis Screening Result: No Definite Risk - Focused Exam Vital Signs: Vital Signs Temp Pulse Resp BP Pulse Ox 11/28/19 02:32 97.7 F 87 15 142/95 H 99 - My Orders Last 24 Hours: My Active Orders 11/28/19 03:05 Chest 2V [CR] Stat 11/28/19 03:06 EKG 12 Lead [EKG Documentation Completion] [RC] STAT - Assessment/Plan Last 24 Hours: My Active Orders 11/28/19 03:05 Chest 2V [CR] Stat 11/28/19 03:06 EKG 12 Lead [EKG Documentation Completion] [RC] STAT
[2019-11-28] MEDS ORDERED: Ketorolac 60 MG/2 ML SDV IM ONE (04:33)
--- NOTE | 2019-12-29 08:30 | CR ---
PROCEDURE INFORMATION: Exam: XR Chest, 2 Views Exam date and time: 11/28/2019 3:15 AM Age: 24 years old Clinical indication: Pain; Chest pressure TECHNIQUE: Imaging protocol: XR of the chest Views: 2 views. COMPARISON: DX Chest 2V 04/14/2019 6:50 PM FINDINGS: Lungs: Unremarkable. No consolidation. Pleural space: Unremarkable. No pleural effusion. No pneumothorax. Heart/Mediastinum: Unremarkable. No cardiomegaly. Bones/joints: Unremarkable. IMPRESSION: No acute findings. Thank you for allowing us to participate in the care of your patient. Dictated and Authenticated by: Favio Griffin MD 12/28/2019 10:12 PM Central Time ([place] & [place]) [place]
== END 2019-11-28 05:51 | disposition home or self-care (01) ==
LOC: JD.ED 02:22
DX: R09.1 Pleurisy (principal); I10 Essential (primary) hypertension; Z88.1 Allergy status to other antibiotic agents; Z91.018 Allergy to other foods; Z79.899 Other long term (current) drug therapy
CPT/HCPCS: 36415; 71046; 80053; 84484; 85025; 85379; 93005; 96372; 99285; J1885; 93010; 99283